=== PATIENT | female | born 1970 | race Caucasian/White ===

== ENCOUNTER → 2017-06-18 09:05 | Outpatient (CLI) | payer BC | END | disposition home or self-care (01) | LOC: D.CT 09:05 | DX: R10.9 Unspecified abdominal pain (principal) ==

== ENCOUNTER 2017-12-26 09:23 | Inpatient (IN) | payer BC ==
[~2017-12-26] VITALS: Ht 160 cm; Wt 72.3 kg
--- NOTE | ~2017-12-26 | MORECARE ---
CASE MANAGEMENT DISCHARGE SUMMARY PATIENT: DAI ALLAN UNIT: [id number] ADM DATE: 12/26/17 AGE: 47 : 66 SEX: F ROOM/BED: D.2228 AUTHOR: TINDOC PHYSICIAN: REFERRING PHYSICIAN: KORY JONES MD DATE OF SERVICE: 12/30/17 Discharge Plan Patient Name: DAI ALLAN Facility: [facility]:[place] : 1970 Planned Disposition: Home Anticipated Discharge Date: 12/29/17 Discharge Date: Expected LOS: 3 Initial Reviewer: [email or web address] Initial Review Date: 12/28/2017 Generated: 12/30/17 1:18 pm Comments DCP- Discharge Planning Updated by [email or web address]: Shara Peterson on 12/30/17 11:[address] Patient Name: DAI ALLAN Encounter No: [id number] : 1970 Primary Insurance: BLUE [employer] OUT OF STATE Anticipated DC Date: 12-29-2017 Planned Disposition: Home External Planned Provider: : DCP follow-up note: Patient and family in agreement with discharge plan. No changes to plan. Case management will follow and assist as needed. Shara Peterson DCP- Discharge Planning Updated by [email or web address]: Shara Peterson on 12/28/17 1:[address] Patient Name: DAI ALLAN Admission Status: ER Accout number: [id number] Admission Date: 12-26-2017 : 1970 Admission Diagnosis:CHOLECYSTITIS, UNSPECIFIED Attending: KORY JONES Current LOS: 2 Anticipated DC Date: 12-29-2017 Planned Disposition: Home Primary Insurance: BLUE [employer] OUT OF STATE Discharge Planning Comments: CM met with patient to discuss discharge planning, she is alone in the room. States she lives with her 25 year old daughter and . States she is independent with all ADL's and IADL's. Stats she does not have any DME or need any. Declines need for HHS. States she has a daughter that is a nurse and a daughter that's a CPT. States her will drive her home on discharge. No needs identified at this time. CM will continue to follow and assist with discharge planning/needs. Exceptional Children'S Teacher: Shara Peterson DCPIA - Discharge Planning Initial Assessment Updated by [id number]: Shara Nicholas on 12/28/17 2:03 pm * Is the patient Alert and Oriented? Yes * How many steps to enter\exit or inside your home? 2/0 * PCP Dr. Sheldon * Pharmacy [facility] on [address] * Preadmission Environment Home with Family * ADLs Independent * Equipment None * List name and contact numbers for known caregivers / representatives who currently or will assist patient after discharge: Dustin Cooper - [phone] Kusum Sprague - mother - [phone] * Verbal permission to speak to the caregivers and representatives has been obtained from the patient. Yes * Community resources currently utilized None * Additional services required to return to the preadmission environment? No * Can the patient safely return to the preadmission environment? Yes * Has this patient been hospitalized within the prior 30 days at any hospital? No Last DP export: 12/28/17 1:09 Patient Name: DAI ALLAN Page 78436 at 1219 All edits/amendments must be made on the electronic document DICTATION DATE: 12/30/171217 TIEDOWN OPERATOR: ROBE 12/30/171217 RPT#: [id number] [place] DATE: STATUS: ADM IN [facility] [address] [place] [address] END OF REPORT
--- NOTE | ~2017-12-26 | OP ---
PATIENT NAME: DAI ALLAN MEDICAL RECORD: [id number] :[birth year] LOCATION:D.MS [address]28 ADMISSION DATE:12/26/17 SURGEON: VALENTINE TOBIAS MD DATE OF OPERATION: 12/27/2017 PREOPERATIVE DIAGNOSIS: Acute cholecystitis. POSTOPERATIVE DIAGNOSES: Acute cholecystitis with hepatomegaly and retained common bile duct stones. PROCEDURES: 1. Laparoscopic cholecystectomy. 2. Intraoperative cholangiography without immediate surgeon interpretation. 3. A 14-gauge core needle liver biopsy. SURGEON: Valentine Tobias MD TERMITE CONTROL REPRESENTATIVE: None. BLOOD LOSS: Minimal. ANESTHESIA: General. DRAINS: x1 (10-Lithuanian fully fluted drainage system). The risks, possible complications, and alternatives to the procedures were explained to the patient. She elects to proceed. OPERATIVE COURSE: The patient was conveyed to the operating room electively on 12/27/2017. General anesthesia was induced by the anesthesia staff. The abdomen was sterilely prepped and draped. A small skin miguel was accomplished in the left upper quadrant. A Veress needle was inserted through the skin miguel into the peritoneal cavity. CO2 insufflation was begun. Once a sufficient pneumoperitoneum had been achieved, a 5-mm trocar was inserted through an incision in the right upper quadrant. Under direct internal vision utilizing television camera, a 12-mm trocar was inserted through an incision at the umbilicus, where there was a small umbilical hernia. Another 5-mm trocar was inserted in the epigastrium. Another 5-mm trocar was inserted in the left upper quadrant. During insertion of the Veress needle and all trocars, there appeared to have been no injury to the bowels, any intraperitoneal or retroperitoneal structures. The indication for liver biopsy was hepatomegaly. Under laparoscopic guidance, I percutaneously accessed the right upper quadrant with a core needle liver biopsy device. Cores were obtained over the convexity of the liver. The biopsy sites were made hemostatic with electrocautery. I then advanced a cholangiogram trocar. I punctured the fundus of the gallbladder. I injected dye. Real time cholangiographic images were obtained. Retained common bile duct stones were noted. I aspirated bile and removed the cholangiogram trocar. The gallbladder was grasped and retracted cephalad. The infundibulum was grasped and retracted laterally. Blunt dissection was begun in the triangle of OPERATIVE REPORT [id number] ALLAN,DAI Calot. One cystic artery and one cystic duct were identified. The cystic artery was clipped multiply and divided between clips. The cystic duct was short. I could not clip it with the small clip finish inspector. I changed out the left upper quadrant trocar from a 5-mm trocar to a 12-mm trocar. I advanced a large clipping device and here again the cystic duct was too wide to clip. I then advanced an Endo-UMER stapling device. I stapled across the cystic duct with an Endo-UMER device with a blue load. The gallbladder was then dissected off of the liver. It was placed within a bag retrieval device and was withdrawn through the umbilical fascia defect. The muscle at the 12-mm trocar site in the left upper quadrant was closed with the Alcides-Debra suture closure device and a #0 Vicryl suture. A 10-Lithuanian round fully fluted drain was advanced down through the lateral most 5-mm trocar. It was sutured to the skin with a 3-0 Prolene. All the trocars were removed and the abdomen was desufflated. The umbilical hernia defect was closed with interrupted #0 Vicryl sutures. The skin at the umbilicus was closed with interrupted 4-0 Vicryl Rapide sutures. The trocar sites were closed with interrupted intracuticular 3-0 Vicryls. Benzoin and Steri-Strips were applied. The patient was then extubated and conveyed to the postanesthesia care unit, where she was in stable condition. My plan is to consult Dr. Santana regarding the retained common bile duct stones. TRANSINT:[id number] Voice Confirmation ID: [id number] DOCUMENT ID: [id number] VALENTINE TOBIAS MD at 1653 CC: YAKELIN DUVAL MD, KORY JONES MD and GILMAR SANTANA DO [id number] DICTATION DATE: 12/27/17 1444 WALL COVERING INSTALLER: 12/27/17 1754 ADM IN [place] [id number] [place] [id number]
--- NOTE | ~2017-12-26 | MORECARE ---
CASE MANAGEMENT DISCHARGE SUMMARY PATIENT: DAI ALLAN UNIT: [id number] ADM DATE: 12/26/17 AGE: 47 : 66 SEX: F ROOM/BED: D.2228 AUTHOR: TIN,DOC PHYSICIAN: REFERRING PHYSICIAN: KORY JONES MD DATE OF SERVICE: 12/28/17 Discharge Plan Patient Name: DAI ALLAN Facility: [facility]:[place] : 1970 Planned Disposition: Home Anticipated Discharge Date: 12/29/17 Discharge Date: Expected LOS: 3 Initial Reviewer: [email or web address] Initial Review Date: 12/28/2017 Generated: 12/28/17 3:09 pm Comments DCP- Discharge Planning Updated by [email or web address]: Shara Peterson on 12/28/17 1:[address] Patient Name: DAI ALLAN Admission Status: ER Accout number: [id number] Admission Date: 12-26-2017 : 1970 Admission Diagnosis:CHOLECYSTITIS, UNSPECIFIED Attending: KORY JONES Current LOS: 2 Anticipated DC Date: 12-29-2017 Planned Disposition: Home Primary Insurance: [employer] OUT OF STATE Discharge Planning Comments: CM met with patient to discuss discharge planning, she is alone in the room. States she lives with her 25 year old daughter and . States she is independent with all ADL's and IADL's. Stats she does not have any DME or need any. Declines need for HHS. States she has a daughter that is a nurse and a daughter that's a CPT. States her will drive her home on discharge. No needs identified at this time. CM will continue to follow and assist with discharge planning/needs. Sales Technician Home Theater: Shara Peterson DCPIA - Discharge Planning Initial Assessment Updated by [id number]: Shara Peterson on 12/28/17 2:03 pm * Is the patient Alert and Oriented? Yes * How many steps to enter\exit or inside your home? 2/0 * PCP Dr. Sheldon * Pharmacy [facility] on [address] * Preadmission Environment Home with Family * ADLs Independent * Equipment None * List name and contact numbers for known caregivers / representatives who currently or will assist patient after discharge: Dustin - - [phone] Kusum Cooper mother - [phone] * Verbal permission to speak to the caregivers and representatives has been obtained from the patient. Yes * Community resources currently utilized None * Additional services required to return to the preadmission environment? No * Can the patient safely return to the preadmission environment? Yes * Has this patient been hospitalized within the prior 30 days at any hospital? No Patient Name: DAI ALLAN Page 28501 at 1409 All edits/amendments must be made on the electronic document DICTATION DATE: 12/28/171407 DRAFTING TECHNICIAN: ROBE 12/28/171407 RPT#: [id number] [place] DATE: STATUS: ADM IN [facility] [address] [place] [address] END OF REPORT
--- NOTE | ~2017-12-26 | MORECARE ---
CASE MANAGEMENT DISCHARGE SUMMARY PATIENT: DAI ALLAN UNIT: [id number] ADM DATE: 12/26/17 AGE: 47 : 66 SEX: F ROOM/BED: D.2228 AUTHOR: TIN,DOC PHYSICIAN: REFERRING PHYSICIAN: KORY JONES MD DATE OF SERVICE: 01/01/18 Discharge Plan Patient Name: DAI ALLAN Facility: [facility]:[place] : 1970 Planned Disposition: Home Anticipated Discharge Date: 12/29/17 Discharge Date: 12/30/2017 Expected LOS: 3 Initial Reviewer: [email or web address] Initial Review Date: 12/28/2017 Generated: 01/01/18 5:10 pm Comments DCP- Discharge Planning Updated by [email or web address]: Shara Peterson on 12/30/17 11:[address] Patient Name: DAI ALLAN Encounter No: [id number] : 1970 Primary Insurance: BLUE [employer] OUT OF STATE Anticipated DC Date: 12-29-2017 Planned Disposition: Home External Planned Provider: : DCP follow-up note: Patient and family in agreement with discharge plan. No changes to plan. Case management will follow and assist as needed. Shara Peterson DCP- Discharge Planning Updated by [email or web address]: Shara Peterson on 12/28/17 1:[address] Patient Name: DAI ALLAN Admission Status: ER Accout number: [id number] Admission Date: 12-26-2017 : 1970 Admission Diagnosis:CHOLECYSTITIS, UNSPECIFIED Attending: KORY JONES Current LOS: 2 Anticipated DC Date: 12-29-2017 Planned Disposition: Home Primary Insurance: [employer]UE [employer] OUT OF STATE Discharge Planning Comments: CM met with patient to discuss discharge planning, she is alone in the room. States she lives with her 25 year old daughter and . States she is independent with all ADL's and IADL's. Stats she does not have any DME or need any. Declines need for HHS. States she has a daughter that is a nurse and a daughter that's a CPT. States her will drive her home on discharge. No needs identified at this time. CM will continue to follow and assist with discharge planning/needs. Binding Cutter: Shara Orrell DCPIA - Discharge Planning Initial Assessment Updated by [id number]: Shara Zaragozapoonam on 12/28/17 2:03 pm * Is the patient Alert and Oriented? Yes * How many steps to enter\exit or inside your home? 2/0 * PCP Dr. Shelodn * Pharmacy [facility] on [address] * Preadmission Environment Home with Family * ADLs Independent * Equipment None * List name and contact numbers for known caregivers / representatives who currently or will assist patient after discharge: Dustin fisher - [phone] Kusum Cooper mother - [phone] * Verbal permission to speak to the caregivers and representatives has been obtained from the patient. Yes * Community resources currently utilized None * Additional services required to return to the preadmission environment? No * Can the patient safely return to the preadmission environment? Yes * Has this patient been hospitalized within the prior 30 days at any hospital? No Last DP export: 12/30/17 11:19 Patient Name: DAI ALLAN Page 18732 at 1610 All edits/amendments must be made on the electronic document DICTATION DATE: 01/01/181608 MARKETING RESEARCH ANALYST: ROBE 01/01/181608 RPT#: [id number] DC DATE:12/30/17 STATUS: DIS IN [facility] [address] [place] [address] END OF REPORT
[2017-12-26] MEDS ORDERED: OMEPRAZOLE40 MG PO (09:30)
[2017-12-26] MEDS ORDERED: LEVOFLOXACIN500 MG PO (09:30)
[2017-12-26] MEDS ORDERED: BENTYL 20 MG TA20 MG (09:30)
[2017-12-26] MEDS ORDERED: ACETAMINOPHEN325 MG PO (09:31)
[2017-12-26] MEDS ORDERED: BENADRYL25 MG PO (09:31)
[2017-12-26] MEDS ORDERED: PHENERGAN DM SYR5 ML PO (09:31)
[2017-12-26] MEDS ORDERED: ALBUTEROL2.5 MG/3 M INH (09:32)
[2017-12-26] MEDS ORDERED: LISINOPRIL5 MG PO (09:37)
[2017-12-26 09:53] LABS: APPEARANCE CLEAR (CLEAR); COLOR STRAW (YELLOW)
[2017-12-26 09:54] LABS: BILIRUBIN NEGATIVE (NEGATIVE); GLUCOSE NEGATIVE (NEGATIVE); KETONE NEGATIVE (NEGATIVE); NITRITE NEGATIVE (NEGATIVE); PROTEIN 2+ mg/dL (NEGATIVE); UROBILINOGEN NORMAL (NORMAL)
[2017-12-26 09:55] LABS: AMORPHOUS SEDIMENT <1+ /lpf (NONE SEEN); BACTERIA FEW /hpf (NONE SEEN); EPITHELIAL CELLS 0-5 /hpf (0-5); MUCUS <1+ /lpf (NONE SEEN); RED CELLS - URINE 0-5 /hpf (0-5); WHITE CELLS - URINE 0-5 /hpf (0-5); YEAST <1+ /hpf (NONE SEEN)
[2017-12-26 09:56] LABS: BASOPHILS 0.4 % (0-2); EOSINOPHILS 1.9 % (0-7); HEMATOCRIT 41.4 % (36.0-48.0); HEMOGLOBIN 14.9 g/dL (12-16); IMMATURE GRANULOCYTES 0.2 % (0-5); LYMPHOCYTES 14.1 % (15-50); MCV 80.5 fL (80.0-100.0); MEAN PLATELET VOLUME 9.6 fL (7.4-10.4); MONOCYTES 5.5 % (2-11); NEUTROPHILS 77.9 % (40-80); PLATELET COUNT 371 10x3/uL (130-400); RBC 5.14 10x6/uL (4.00-5.40); RDW 13.5 % (11.5-14.5); WBC 10.3 10x3/uL (4.8-10.8)
[2017-12-26 10:09] LABS: BILIRUBIN - TOTAL 0.99 mg/dL (0.2-1.3); CALCIUM 9.2 mg/dL (8.5-10.1); CARBON DIOXIDE 24.9 mmol/L (21.0-32.0); POTASSIUM - SERUM 3.3 mmol/L (3.5-5.1); PROTEIN - SERUM 8.5 g/dL (6.4-8.2)
[2017-12-26 11:56] VITALS: BP 143/108
[2017-12-26] MEDS ORDERED: AUBAGIO14 MG PO (14:32)
[2017-12-26] MEDS ORDERED: NEURONTIN 300300 MG PO (14:33)
[2017-12-26 19:51] VITALS: BP 141/91; Ht 160 cm; Wt 72.3 kg
[2017-12-26 20:30] VITALS: BP 135/56
[2017-12-27 00:30] VITALS: BP 112/70
[2017-12-27 04:30] VITALS: BP 121/80
[2017-12-27 08:27] VITALS: BP 151/88
[2017-12-27 11:14] VITALS: BP 144/78
[2017-12-27 15:20] VITALS: BP 151/96
[2017-12-27 20:00] VITALS: BP 138/85
[2017-12-28] VITALS: BP 133/92
[2017-12-28 04:00] VITALS: BP 127/85
[2017-12-28 06:00] LABS: BASOPHILS 0.1 % (0-2); EOSINOPHILS 0 % (0-7); HEMATOCRIT 38.1 % (36.0-48.0); HEMOGLOBIN 13.2 g/dL (12-16); IMMATURE GRANULOCYTES 0.4 % (0-5); LYMPHOCYTES 8.7 % (15-50); MCH 28.1 pg (26.0-34.0); MCHC 34.6 g/dL (31.0-37.0); MCV 81.2 fL (80.0-100.0); MEAN PLATELET VOLUME 10.1 fL (7.4-10.4); MONOCYTES 5.8 % (2-11); PLATELET COUNT 367 10x3/uL (130-400); RBC 4.69 10x6/uL (4.00-5.40); RDW 13.8 % (11.5-14.5)
[2017-12-28 06:21] LABS: WBC 16.2 10x3/uL (4.8-10.8)
[2017-12-28 06:40] LABS: ALBUMIN 3.5 g/dL (3.4-5.0); ANION GAP 13.9 mmol/L (8-16); BILIRUBIN - TOTAL 0.36 mg/dL (0.2-1.3); CALCIUM 9.1 mg/dL (8.5-10.1); CARBON DIOXIDE 25.6 mmol/L (21.0-32.0); CREATININE - SERUM 0.9 mg/dL (0.6-1.3); MAGNESIUM - SERUM 1.8 mg/dL (1.8-2.4); PHOSPHOROUS 3.7 mg/dL (2.5-4.9); POTASSIUM - SERUM 3.5 mmol/L (3.5-5.1); PROTEIN - SERUM 7.4 g/dL (6.4-8.2)
[2017-12-28 07:45] VITALS: BP 133/82
[2017-12-28 17:05] VITALS: BP 146/97
[2017-12-28 18:41] VITALS: BP 147/96
[2017-12-28 20:00] VITALS: BP 158/83
[2017-12-29] VITALS: BP 148/88
[2017-12-29 04:46] LABS: BASOPHILS 0.7 % (0-2); EOSINOPHILS 1.1 % (0-7); HEMOGLOBIN 12.4 g/dL (12-16); IMMATURE GRANULOCYTES 0.2 % (0-5); LYMPHOCYTES 23.3 % (15-50); MCH 28.1 pg (26.0-34.0); MCHC 34.4 g/dL (31.0-37.0); MCV 81.4 fL (80.0-100.0); MEAN PLATELET VOLUME 9.8 fL (7.4-10.4); MONOCYTES 7.5 % (2-11); NEUTROPHILS 67.2 % (40-80); PLATELET COUNT 312 10x3/uL (130-400); RBC 4.42 10x6/uL (4.00-5.40); RDW 13.9 % (11.5-14.5)
[2017-12-29 05:00] LABS: WBC 8.8 10x3/uL (4.8-10.8)
[2017-12-29 05:29] LABS: ALBUMIN 3.2 g/dL (3.4-5.0); ANION GAP 10.6 mmol/L (8-16); BILIRUBIN - TOTAL 1.13 mg/dL (0.2-1.3); CALCIUM 8.5 mg/dL (8.5-10.1); CARBON DIOXIDE 29.9 mmol/L (21.0-32.0); POTASSIUM - SERUM 3.5 mmol/L (3.5-5.1); PROTEIN - SERUM 6.9 g/dL (6.4-8.2)
[2017-12-29 07:21] VITALS: BP 151/82
[2017-12-29 08:32] VITALS: BP 135/88
[2017-12-29 12:10] VITALS: BP 145/86
[2017-12-29 17:13] VITALS: BP 157/91
[2017-12-29 22:17] VITALS: BP 126/83
[2017-12-30 01:08] VITALS: BP 115/80
[2017-12-30 05:08] VITALS: BP 125/75
[2017-12-30 06:31] LABS: BASOPHILS 0.5 % (0-2); EOSINOPHILS 5.9 % (0-7); HEMATOCRIT 36.2 % (36.0-48.0); HEMOGLOBIN 12.3 g/dL (12-16); IMMATURE GRANULOCYTES 0.3 % (0-5); LYMPHOCYTES 29.4 % (15-50); MCV 82.3 fL (80.0-100.0); MEAN PLATELET VOLUME 10.2 fL (7.4-10.4); MONOCYTES 6.5 % (2-11); NEUTROPHILS 57.4 % (40-80); PLATELET COUNT 308 10x3/uL (130-400); RDW 14.2 % (11.5-14.5); WBC 10.5 10x3/uL (4.8-10.8)
[2017-12-30 06:45] LABS: ALBUMIN 3.1 g/dL (3.4-5.0); ANION GAP 13.2 mmol/L (8-16); BILIRUBIN - TOTAL 0.34 mg/dL (0.2-1.3); CALCIUM 8.4 mg/dL (8.5-10.1); CARBON DIOXIDE 26.6 mmol/L (21.0-32.0); CREATININE - SERUM 0.9 mg/dL (0.6-1.3); POTASSIUM - SERUM 3.8 mmol/L (3.5-5.1); PROTEIN - SERUM 6.9 g/dL (6.4-8.2)
[2017-12-30 08:36] VITALS: BP 129/81
[2017-12-30] MEDS ORDERED: ZOFRAN4 MG PO (11:47)
[2017-12-30] MEDS ORDERED: HYDROCODON-ACE1 EAC7 PO (11:47)
[2017-12-30 12:32] VITALS: BP 140/98
== END 2017-12-30 17:46 | disposition home or self-care (01) | DRG 418 ==
LOC: D.ER 09:23 → D.MS 14:06 → OBSVTIME 14:06 → D.MS 15:47
PROVIDERS: Emergency Medicine; Internal Medicine Nephrology; Surgery
PROC: 0FT44ZZ Resection of Gallbladder, Percutaneous Endoscopic Approach (ICD-10-PCS; principal; 2017-12-27 11:30)
PROC: 0FB04ZX Excision of Liver, Percutaneous Endoscopic Approach, Diagnostic (ICD-10-PCS; 2017-12-27 11:30)
PROC: 0FC98ZZ Extirpation of Matter from Common Bile Duct, Via Natural or Artificial Opening Endoscopic (ICD-10-PCS; 2017-12-28)
DX: K80.00 Calculus of gallbladder with acute cholecystitis without obstruction (principal); K91.86 Retained cholelithiasis following cholecystectomy; R16.0 Hepatomegaly, not elsewhere classified; E86.0 Dehydration; G62.9 Polyneuropathy, unspecified; F41.9 Anxiety disorder, unspecified

== ENCOUNTER → 2018-11-19 09:56 | Outpatient (CLI) | payer BC ==
[2017-12-26 19:51] VITALS: BMI 28.2
[~2018-11-19 09:56] MED LIST: ACETAMINOPHEN325 MG PO; ALBUTEROL2.5 MG/3 M INH; AUBAGIO14 MG PO; BENADRYL25 MG PO; BENTYL 20 MG TA20 MG; HYDROCODON-ACE1 EAC7 PO; LEVOFLOXACIN500 MG PO; LISINOPRIL5 MG PO; NEURONTIN 300300 MG PO; OMEPRAZOLE40 MG PO; PHENERGAN DM SYR5 ML PO; ZOFRAN4 MG PO
--- NOTE | 2018-11-22 11:10 | ST ---
PATIENT:DAI ALLAN MEDICAL RECORD: [id number] SEX: F LOCATION:[facility] ORDER #: ADMISSION DATE: 11/19/18 AGE OF PATIENT: 48 REFERRING PHYSICIAN: INTERPRETING PHYSICIAN: GUERLINE BELLAMY MD DATE OF SERVICE: 11/19/2018 PROCEDURE: Nuclear stress test. INDICATIONS: Angina, hypertension, abnormal ECG. She was exercised on standard Augustine protocol for 8 minutes achieving 85% of max target heart rate response with 32 mCi of sestamibi injected at peak stress, 11 mCi used previously for rest images. FINDINGS: Gated SPECT reveals preserved ejection fraction at 74% with good wall motion and thickening and brightening throughout all segments. SPECT imaging: Cardiolite was used as myocardial perfusion agent. There is homogeneous uptake throughout all segments at rest and stress with no evidence of inducible ischemia or previous infarction. OVERALL IMPRESSION: 1. This is a normal nuclear stress test with no evidence of inducible ischemia or previous infarction. 2. Gated SPECT reveals a preserved ejection fraction at 74%. In this patient with ongoing symptomatology, the current scan does not suggest the presence of hemodynamically significant coronary artery disease. Evaluate noncardiac etiology of chest pain. TRANSINT:[id number] Voice Confirmation ID: [id number] DOCUMENT ID: [id number] GUERLINE BELLAMY MD at 1110 CC: YAKELIN DUVAL MD [id number] DICTATION DATE: 11/19/18 1304 PRODUCTION CREW SUPERVISOR: 11/20/18 0733 [facility] CLI 11/19/18 [facility] [address] [place] [address]
== END | disposition home or self-care (01) ==
LOC: D.HCCARDIO 09:56
PROVIDERS: ATTEND Internal Medicine Interventional Cardiology
DX: R07.9 Chest pain, unspecified (principal)

== ENCOUNTER 2019-01-19 15:52 | Emergency (ER) | payer MEDICAID ==
[~2019-01-19] VITALS: Ht 160 cm; Wt 81.4 kg
[2019-01-19 15:58] VITALS: Ht 160 cm; Wt 81.4 kg
[2019-01-19 16:22] LABS: BASOPHILS 0.2 % (0-2); EOSINOPHILS 1.7 % (0-7); HEMATOCRIT 38.2 % (36.0-48.0); HEMOGLOBIN 13.3 g/dL (12-16); IMMATURE GRANULOCYTES 0.4 % (0-5); LYMPHOCYTES 11.9 % (15-50); MCH 28.4 pg (26.0-34.0); MCHC 34.8 g/dL (31.0-37.0); MCV 81.6 fL (80.0-100.0); MEAN PLATELET VOLUME 9.3 fL (7.4-10.4); MONOCYTES 4.5 % (2-11); NEUTROPHILS 81.3 % (40-80); PLATELET COUNT 346 10x3/uL (130-400); RBC 4.68 10x6/uL (4.00-5.40); RDW 13.4 % (11.5-14.5); WBC 13.9 10x3/uL (4.8-10.8)
[2019-01-19 16:36] LABS: APTT 33.2 SECONDS (22.8-39.4); PROTIME 12.7 SECONDS (11.6-15.0)
[2019-01-19 16:45] LABS: CALC OSMOLALITY 277 mosm/kg (275-300); CALCIUM 9.4 mg/dL (8.5-10.1); CHLORIDE - SERUM 100 mmol/L (98-107); CREATININE - SERUM 0.9 mg/dL (0.6-1.3); POTASSIUM - SERUM 3.4 mmol/L (3.5-5.1); SODIUM 138 mmol/L (136-145); UREA NITROGEN 10 mg/dL (7-18); eGFR NON AFRICAN AMERICAN 70 mL/min (90-120)
[2019-01-19 16:52] LABS: GLUCOSE 146 mg/dL (74-106)
[2019-01-19 17:03] LABS: ALBUMIN 3.9 g/dL (3.4-5.0); ALKALINE PHOSPHATASE 98 U/L (46-116); ALT (SGPT) 25 U/L (10-68); BILIRUBIN - TOTAL 0.27 mg/dL (0.2-1.3); CREATINE KINASE 99 UL (21-215); MAGNESIUM - SERUM 1.7 mg/dL (1.8-2.4); PROTEIN - SERUM 8.3 g/dL (6.4-8.2); THYROID STIMULATING HORMONE 4.09 uIU/mL (0.36-3.74)
[2019-01-19 17:05] LABS: TROPONIN-I < 0.017 ng/mL (0.000-0.060)
[2019-01-19 17:26] LABS: CKMB 0.9 U/L (0.0-3.6)
[2019-01-19] MEDS ORDERED: IPRATROPIUM BRO15 M1 NASAL (18:01)
[2019-01-19] MEDS ORDERED: MECLIZINE HCL25 MG PO (18:02)
[2019-01-19] MEDS ORDERED: ZOFRAN ODT4 MG/UDTAB PO (18:03)
[2019-01-19 18:46] VITALS: BP 148/86
== END 2019-01-19 18:47 | disposition home or self-care (01) ==
LOC: D.ER 15:52
PROVIDERS: Family Medicine
DX: R42 Dizziness and giddiness (principal); R94.6 Abnormal results of thyroid function studies; R46.89 Other symptoms and signs involving appearance and behavior; H74.8X9 Other specified disorders of middle ear and mastoid, unspecified ear

== ENCOUNTER 2019-10-03 19:57 | Inpatient (IN) | payer MEDICAID ==
[~2019-10-03] VITALS: Ht 160 cm; Wt 78.5 kg
[~2019-10-03 19:57] MED LIST changes: +IPRATROPIUM BRO15 M1 NASAL; +MECLIZINE HCL25 MG PO; +ZOFRAN ODT4 MG/UDTAB PO
[2019-10-03] MEDS ORDERED: PHENERGAN25 M1 PO (20:26)
[2019-10-03] MEDS ORDERED: ULTRAM50 MG PO (20:27)
--- NOTE | 2019-10-03 20:40 | NUR ---
BLOOD AND URINE SENT TO LAB.
[2019-10-03 20:51] LABS: BASOPHILS 0.2 % (0-2); EOSINOPHILS 1.1 % (0-7); HEMATOCRIT 40.1 % (36.0-48.0); HEMOGLOBIN 13.6 g/dL (12-16); IMMATURE GRANULOCYTES 0.3 % (0-5); LYMPHOCYTES 14.8 % (15-50); MCH 27.4 pg (26.0-34.0); MCHC 33.9 g/dL (31.0-37.0); MCV 80.8 fL (80.0-100.0); MEAN PLATELET VOLUME 9.2 fL (7.4-10.4); MONOCYTES 6.8 % (2-11); NEUTROPHILS 76.8 % (40-80); PLATELET COUNT 405 10x3/uL (130-400); RBC 4.96 10x6/uL (4.00-5.40); RDW 13.2 % (11.5-14.5); WBC 18.5 10x3/uL (4.8-10.8)
[2019-10-03 20:56] LABS: BILIRUBIN NEGATIVE (NEGATIVE); KETONE NEGATIVE (NEGATIVE); NITRITE NEGATIVE (NEGATIVE); UROBILINOGEN NORMAL (NORMAL)
[2019-10-03 21:11] LABS: BACTERIA FEW /hpf (NEGATIVE); EPITHELIAL CELLS 0-5 /hpf (0-5); RED CELLS - URINE 0-5 /hpf (0-5); WHITE CELLS - URINE OCC /hpf (NEGATIVE)
[2019-10-03 21:59] LABS: CALC OSMOLALITY 267 mosm/kg (275-300); CALCIUM 9.1 mg/dL (8.5-10.1); CARBON DIOXIDE 28.6 mmol/L (21.0-32.0); CHLORIDE - SERUM 98 mmol/L (98-107); GLUCOSE 109 mg/dL (74-106); POTASSIUM - SERUM 3.4 mmol/L (3.5-5.1); SODIUM 134 mmol/L (136-145); UREA NITROGEN 9 mg/dL (7-18); eGFR NON AFRICAN AMERICAN 62 mL/min (90-120)
[2019-10-03 22:08] LABS: ALBUMIN 3.8 g/dL (3.4-5.0); ALKALINE PHOSPHATASE 94 U/L (30-120); ALT (SGPT) 21 U/L (10-68); AMYLASE - SERUM 26 U/L (25-115); BILIRUBIN - TOTAL 0.55 mg/dL (0.2-1.3); LIPASE 60 U/L (73-393); PROTEIN - SERUM 8.4 g/dL (6.4-8.2)
[2019-10-03 22:09] LABS: TROPONIN-I < 0.017 ng/mL (0.000-0.060)
--- NOTE | 2019-10-04 00:02 | NUR ---
PT AMBULATED TO THE RESTROOM WITH ASSISTANCE. PT DENIES OTHER COMPLAINTS AT THIS TIME.
--- NOTE | 2019-10-04 00:48 | NUR ---
INFUSION OF MERREM COMPLETE AT THIS TIME
[2019-10-04 01:20] VITALS: BP 116/72
[2019-10-04 04:00] VITALS: BP 138/76
--- NOTE | 2019-10-04 04:57 | NUR ---
PT AMBULATED TO RESTROOM WITH ASSISTANCE.
--- NOTE | 2019-10-04 05:07 | NUR ---
INFUSION OF NS COMPLETE AT THIS TIME.
--- NOTE | 2019-10-04 06:42 | NUR ---
PT AMBULATED TO THE REST ROOM INDEPENDENTLY.
[2019-10-04 06:53] VITALS: BP 126/75
[2019-10-04 06:57] LABS: ALBUMIN 3.1 g/dL (3.4-5.0); ANION GAP 9.7 mmol/L (8-16); BILIRUBIN - TOTAL 0.43 mg/dL (0.2-1.3); CALCIUM 8.4 mg/dL (8.5-10.1); CREATININE - SERUM 0.9 mg/dL (0.6-1.3); POTASSIUM - SERUM 3.7 mmol/L (3.5-5.1); PROTEIN - SERUM 7.1 g/dL (6.4-8.2)
--- NOTE | 2019-10-04 07:01 | NUR ---
REPORT GIVEN TO BREE CHRISTIE
[2019-10-04 07:04] LABS: BASOPHILS 0.2 % (0-2); EOSINOPHILS 0.6 % (0-7); HEMATOCRIT 36.5 % (36.0-48.0); HEMOGLOBIN 12.4 g/dL (12-16); IMMATURE GRANULOCYTES 0.3 % (0-5); LYMPHOCYTES 8.8 % (15-50); MCH 27.4 pg (26.0-34.0); MCV 80.8 fL (80.0-100.0); MEAN PLATELET VOLUME 9.3 fL (7.4-10.4); MONOCYTES 7.6 % (2-11); NEUTROPHILS 82.5 % (40-80); PLATELET COUNT 345 10x3/uL (130-400); RBC 4.52 10x6/uL (4.00-5.40); RDW 13.1 % (11.5-14.5); WBC 15.6 10x3/uL (4.8-10.8)
--- NOTE | 2019-10-04 12:15 | NUR ---
TO ROOM 2224 FROM ER VIA WHEELCHAIR. ASSESSMENT PER FLOW SHEET. ORIENTATION TO ROOM.CALL LIGHT IN REACH
[2019-10-04 14:02] VITALS: BP 154/89; BMI 30.5
[2019-10-04 15:00] VITALS: BP 141/86
[2019-10-04 20:00] VITALS: BP 148/86
[2019-10-05] VITALS: BP 112/68
--- NOTE | 2019-10-05 00:11 | NUR ---
I have reviewed this patient and I concur with the Shift Assessment completed by the Licensed Practical Nurse today this shift.
[2019-10-05 04:00] VITALS: BP 122/75
--- NOTE | 2019-10-05 07:10 | NUR ---
REC'D IN BED AWAKE AND ALERT. RESP EVEN AND UNLABORED WITH NO DISTRESS NOTED. CAN EXPRESS NEEDS AND WANTS. NO C/O NOTED OR VOICED. ASSESSMENT COMPLETED. C/L IN REACH AT BEDSIDE.
[2019-10-05 09:56] LABS: BASOPHILS 0.2 % (0-2); EOSINOPHILS 1.4 % (0-7); HEMATOCRIT 35.3 % (36.0-48.0); HEMOGLOBIN 12.1 g/dL (12-16); IMMATURE GRANULOCYTES 0.3 % (0-5); LYMPHOCYTES 12.1 % (15-50); MCH 27.6 pg (26.0-34.0); MCHC 34.3 g/dL (31.0-37.0); MCV 80.4 fL (80.0-100.0); MEAN PLATELET VOLUME 9.1 fL (7.4-10.4); MONOCYTES 6.8 % (2-11); NEUTROPHILS 79.2 % (40-80); PLATELET COUNT 353 10x3/uL (130-400); RBC 4.39 10x6/uL (4.00-5.40); WBC 13.9 10x3/uL (4.8-10.8)
[2019-10-05 09:58] VITALS: BP 127/83
[2019-10-05 10:00] LABS: CALC OSMOLALITY 275 mosm/kg (275-300); CALCIUM 8.1 mg/dL (8.5-10.1); CARBON DIOXIDE 24.5 mmol/L (21.0-32.0); CHLORIDE - SERUM 105 mmol/L (98-107); CREATININE - SERUM 0.7 mg/dL (0.6-1.3); GLUCOSE 97 mg/dL (74-106); POTASSIUM - SERUM 3.4 mmol/L (3.5-5.1); SODIUM 139 mmol/L (136-145); UREA NITROGEN 7 mg/dL (7-18); eGFR NON AFRICAN AMERICAN > 90 mL/min (90-120)
--- NOTE | 2019-10-05 10:04 | NUR ---
WAS MEDICATED WITH ZOFRAN AT THIS TIME FOR C/O NAUSEA. C/L IN REACH AT BEDSIDE.
--- NOTE | 2019-10-05 11:10 | NUR ---
WAS MEDICATED AT THIS TIME FOR C/O PAIN WITH DILAUDID PER ORDERS. C/L IN REACH BEDSIDE.
[2019-10-05 13:33] VITALS: BP 153/78
[2019-10-05 13:49] VITALS: Ht 160 cm; Wt 78.5 kg
--- NOTE | 2019-10-05 15:41 | NUR ---
WAS MEDICATED WITH DILUADID AT THIS TIME FOR C/O PAIN. C/L IN REACH AT BEDSIDE.
--- NOTE | 2019-10-05 15:46 | NUR ---
WAS MEDICATED WITH ZOFRAN AT THIS TIME FOR C/O NAUSEA. C/L IN REACH AT BEDSIDE.
[2019-10-05 18:25] VITALS: BP 138/90
--- NOTE | 2019-10-05 18:45 | NUR ---
I have reviewed this patient and I concur with the Shift Assessment completed by the Licensed Practical Nurse today this shift.
[2019-10-05 20:00] VITALS: BP 140/80
[2019-10-06] VITALS (7 sets, daily range): BP systolic 113–146; BP diastolic 54–87
[2019-10-06 04:27] LABS: BASOPHILS 0.2 % (0-2); HEMOGLOBIN 12.4 g/dL (12-16); IMMATURE GRANULOCYTES 0.3 % (0-5); LYMPHOCYTES 12.3 % (15-50); MCH 27.5 pg (26.0-34.0); MCHC 34.4 g/dL (31.0-37.0); MCV 79.8 fL (80.0-100.0); MEAN PLATELET VOLUME 9.2 fL (7.4-10.4); MONOCYTES 6.4 % (2-11); NEUTROPHILS 79.8 % (40-80); PLATELET COUNT 405 10x3/uL (130-400); RBC 4.51 10x6/uL (4.00-5.40); RDW 13.1 % (11.5-14.5); WBC 16.3 10x3/uL (4.8-10.8)
[2019-10-06 04:48] LABS: ANION GAP 9.1 mmol/L (8-16); BILIRUBIN - TOTAL 0.38 mg/dL (0.2-1.3); CALCIUM 8.5 mg/dL (8.5-10.1); CARBON DIOXIDE 27.3 mmol/L (21.0-32.0); MAGNESIUM - SERUM 1.9 mg/dL (1.8-2.4); POTASSIUM - SERUM 3.4 mmol/L (3.5-5.1); PROTEIN - SERUM 7.1 g/dL (6.4-8.2)
[2019-10-06 04:49] LABS: CREATININE - SERUM 0.9 mg/dL (0.6-1.3)
--- NOTE | 2019-10-06 06:19 | NUR ---
I have reviewed this patient and I concur with the Shift Assessment completed by the Licensed Practical Nurse today this shift.
--- NOTE | 2019-10-06 11:34 | NUR ---
IV THERAPY REMOVED FROM LEFT FOREARM WITH TIP INTACT. INFILTRATED. RIGHT AC HAS A SMALL LEAK. WILL GIVE ANOTHER IV AFTER PT SHOWER. CL IN REACH. WCTM
--- NOTE | 2019-10-06 19:30 | NUR ---
PT IN BED, AAO X 3, RESP EVEN AND UNLABORED, NO DISTRESS NOTED, CL IN REACH, SR UP X 2.
--- NOTE | 2019-10-07 00:35 | NUR ---
I have reviewed this patient and I concur with the Shift Assessment completed by the Licensed Practical Nurse today this shift.
[2019-10-07 03:49] VITALS: BP 128/68
[2019-10-07 05:32] LABS: BASOPHILS 0.2 % (0-2); EOSINOPHILS 2.6 % (0-7); HEMOGLOBIN 12.3 g/dL (12-16); IMMATURE GRANULOCYTES 0.5 % (0-5); LYMPHOCYTES 16.9 % (15-50); MCH 27.3 pg (26.0-34.0); MCHC 34.2 g/dL (31.0-37.0); MCV 79.8 fL (80.0-100.0); MEAN PLATELET VOLUME 9.1 fL (7.4-10.4); MONOCYTES 7.7 % (2-11); NEUTROPHILS 72.1 % (40-80); PLATELET COUNT 416 10x3/uL (130-400); RBC 4.51 10x6/uL (4.00-5.40); WBC 14.5 10x3/uL (4.8-10.8)
[2019-10-07 05:55] LABS: ANION GAP 11.6 mmol/L (8-16); BILIRUBIN - TOTAL 0.34 mg/dL (0.2-1.3); CALCIUM 8.4 mg/dL (8.5-10.1); CARBON DIOXIDE 28.5 mmol/L (21.0-32.0); PROTEIN - SERUM 7.1 g/dL (6.4-8.2)
[2019-10-07 06:02] LABS: POTASSIUM - SERUM 3.1 mmol/L (3.5-5.1)
--- NOTE | 2019-10-07 07:44 | NUR ---
ALERT AND ORIENTED. LUNGS CLEAR BILATERALLY. HEART SOUNDS S1 AND S2 HEARD IN ALL COWAN. BOWEL SOUNDS ACTIVE X 4. ABD DISTENDED. IV TO LFA PATENT WITHOUT REDNESS. DENIES NEEDS. BED LOW. CALL ACEVEDO AND PERSONAL ITEMS IN REACH. WILL CONTINUE TO MONITOR.
[2019-10-07 09:16] VITALS: BP 130/61
--- NOTE | 2019-10-07 12:33 | NUR ---
NUTRITION FOLLOW UP: INTERVIEW: Met with patient this am. Patient stated her appetite has been improving. She stated she had nausea, but denied vomiting. She stated that she experiences diarrhea and constipation off and on. DIET: Regluar Diet PO INTAKE: 48% avg for last 3 meals WEIGHT: 10/02-172 lbs, 10/06-173 lbs BM: x 1 on 10/06 SIG LABS: K-3.1(L), Ca-8.4(L), Albumin-3.0(L) SIG MEDS: Colace, Protonix, Zofran, KCl RECOMMENDATIONS: -Continue current diet as tolerated -Offer nutritional supplements if po intake continues < 50% avg for meals RD to continue to follow and monitor patient DHS
[2019-10-07 12:57] VITALS: BP 147/81
[2019-10-07 17:06] VITALS: BP 142/84
--- NOTE | 2019-10-07 19:00 | NUR ---
BEDSIDE REPORT RECEIVED AND CARE OF PT ASSUMED. PT UP IN RESTROOM AT THIS TIME. IV TO LEFT FA PATENT WITH NS INFUSING AT 150 ML/HR. WILL MONITOR FOR NEEDS.
--- NOTE | 2019-10-07 19:44 | NUR ---
HS MEDICATIONS GIVEN TO INCLUDE GAS X PER REQUEST FOR GAS DISCOMFORT. WILL CONTINUE TO MONITOR FOR NEEDS.
[2019-10-07 20:00] VITALS: BP 124/80
[2019-10-08 04:00] VITALS: BP 130/78
[2019-10-08 06:36] LABS: BASOPHILS 0.2 % (0-2); EOSINOPHILS 3.2 % (0-7); HEMATOCRIT 34.8 % (36.0-48.0); HEMOGLOBIN 11.9 g/dL (12-16); IMMATURE GRANULOCYTES 0.5 % (0-5); LYMPHOCYTES 15.2 % (15-50); MCH 27.2 pg (26.0-34.0); MCHC 34.2 g/dL (31.0-37.0); MCV 79.5 fL (80.0-100.0); MONOCYTES 5.5 % (2-11); NEUTROPHILS 75.4 % (40-80); PLATELET COUNT 438 10x3/uL (130-400); RBC 4.38 10x6/uL (4.00-5.40); RDW 12.9 % (11.5-14.5); WBC 13.3 10x3/uL (4.8-10.8)
[2019-10-08 07:25] LABS: ALBUMIN 3.1 g/dL (3.4-5.0); ANION GAP 10.8 mmol/L (8-16); BILIRUBIN - TOTAL 0.28 mg/dL (0.2-1.3); CALCIUM 8.4 mg/dL (8.5-10.1); CARBON DIOXIDE 28.5 mmol/L (21.0-32.0); CREATININE - SERUM 0.9 mg/dL (0.6-1.3); MAGNESIUM - SERUM 1.9 mg/dL (1.8-2.4); PROTEIN - SERUM 7.1 g/dL (6.4-8.2)
[2019-10-08 07:26] LABS: POTASSIUM - SERUM 3.3 mmol/L (3.5-5.1)
--- NOTE | 2019-10-08 07:34 | NUR ---
ALERT AND ORIENTED. LUNGS CLEAR BILATERALLY. HEART SOUNDS S1 AND S2 HEARD IN ALL COWAN. BOWEL SOUNDS ACTIVE X 4. AND DISTENDED. IV TO LFA PATENT WITHOUT REDNESS. DENIES NEEDS. BED LOW. CALL ACEVEDO AND PERSONAL ITEMS IN REACH. WILL CONTINUE TO MONITOR.
[2019-10-08 09:34] VITALS: BP 139/81
[2019-10-08 13:32] VITALS: BP 144/69
--- NOTE | 2019-10-08 17:31 | NUR ---
IV INFILTRATED TO LFA. RESITED TO RFA AFTER ONE ATTEMPT WITH 22 GAUGE.
[2019-10-08 17:45] VITALS: BP 141/81
--- NOTE | 2019-10-08 18:24 | NUR ---
RESTING IN BED. DENIES NEEDS. BED LOW. CALL ACEVEDO AND PERSONAL ITEMS IN REACH.
--- NOTE | 2019-10-08 19:00 | NUR ---
BEDSIDE REPORT RECEIVED AND CARE OF PT ASSUMED. PT AMBULATING IN ROOM AT THIS TIME. IV TO RIGHT FA PATENT WITH NS INFUSING AT 150 ML/HR. WILL MONITOR FOR NEEDS.
--- NOTE | 2019-10-08 20:20 | NUR ---
HS MEDICATIONS GIVEN. WILL CONTINUE TO MONITOR FOR NEEDS.
--- NOTE | 2019-10-08 21:04 | NUR ---
RECEIVED ORDER FROM [facility] FOR DIFLUCAN 100 MG QD X4 DAYS FOR PT C/O VAGINAL ITCHING. FIRST DOST WILL BE GIVEN TONIGHT.
--- NOTE | 2019-10-08 21:20 | NUR ---
GAVE FIRST DOSE OF DIFLUCAN. GAVE DILAUDID 1 MG AND ZOFRAN 4 MG IVP PER PT REQUEST FOR PAIN AND NAUSEA. WILL CONTINUE TO MONITOR FOR NEEDS.
[2019-10-08 21:40] VITALS: BP 152/73
[2019-10-08 23:45] VITALS: BP 146/86
--- NOTE | 2019-10-09 03:04 | NUR ---
DECREASED IVF RATE TO 75 ML/HR PER MD NOTES.
[2019-10-09 04:24] VITALS: BP 121/70
[2019-10-09 07:11] LABS: BASOPHILS 0.2 % (0-2); EOSINOPHILS 2.7 % (0-7); HEMOGLOBIN 11.6 g/dL (12-16); IMMATURE GRANULOCYTES 0.3 % (0-5); LYMPHOCYTES 18.2 % (15-50); MCH 27.2 pg (26.0-34.0); MCHC 34.1 g/dL (31.0-37.0); MCV 79.8 fL (80.0-100.0); MEAN PLATELET VOLUME 8.9 fL (7.4-10.4); MONOCYTES 6.6 % (2-11); PLATELET COUNT 431 10x3/uL (130-400); RBC 4.26 10x6/uL (4.00-5.40); WBC 12.1 10x3/uL (4.8-10.8)
[2019-10-09 08:01] LABS: ANION GAP 12.4 mmol/L (8-16); BILIRUBIN - TOTAL 0.22 mg/dL (0.2-1.3); CALCIUM 8.8 mg/dL (8.5-10.1); CARBON DIOXIDE 28.1 mmol/L (21.0-32.0); CREATININE - SERUM 0.9 mg/dL (0.6-1.3); MAGNESIUM - SERUM 1.9 mg/dL (1.8-2.4); POTASSIUM - SERUM 3.5 mmol/L (3.5-5.1)
[2019-10-09 09:17] VITALS: BP 143/81
[2019-10-09 13:21] VITALS: BP 141/86
--- NOTE | 2019-10-09 19:00 | NUR ---
BEDSIDE REPORT RECEIVED AND CARE OF PT ASSUMED. PT LYING IN HIGH HERR'S POSITION VISITING WITH SPOUSE. PROVIDED ICE AND ICE WATER PER REQUEST.
[2019-10-09 19:09] VITALS: BP 149/81
--- NOTE | 2019-10-09 19:15 | NUR ---
GAVE MYLICON CHEWABLE TABLET PER PT REQUEST FOR GAS. WILL CONTINUE TO MONITOR FOR NEEDS.
[2019-10-09 20:00] VITALS: BP 129/71
--- NOTE | 2019-10-09 21:16 | NUR ---
HS MEDICATIONS GIVEN TO INCLUDE DILAUDID AND ZOFRAN PER REQUEST FOR PAIN AND NAUSEA. IV TENDER BUT FLUSHING...STOPPED IV FLUIDS FOR NOW.
[2019-10-10] VITALS: BP 120/69
[2019-10-10 04:00] VITALS: BP 105/59
--- NOTE | 2019-10-10 07:31 | NUR ---
PT AWAKE AND ALERT IN RESTROOM, TOLD PT I HAD IV ABX TO RUN. PT STATED IV IS NO GOOD AND THAT SHE WAS TOLD SHE IS GOING HOME TODAY. PT STATED ARM SWELLS UP WHEN ANYTHING GOES THROUGH IV. PT HAS IV PAIN MEDICATION AND STATED THAT IS THE ONLY THING THAT CAN GO THROUGH MY IV. EXPLAINED TO PT THAT IF IV ABX IS NOT RUNNING THROUGH IV THEN NEITHER WOULD HER PAIN MEDICATION. PT STATED " I DON'T KNOW WHAT TO TELL YOU, THATS AL I CAN GET THROUGH MY IV IS MY DILAUDID. TOLD PT I WILL TALK TO AND SEE IF WE CANT CHANGE HER IV MEDICATIONS TO ORAL MEDICATIONS. PT STATED SHE IS BEING DISCHARGED TODAY ANYWAYS. CONTINUE WITH PLAN OF CARE
[2019-10-10 07:34] LABS: ALBUMIN 3.3 g/dL (3.4-5.0); BILIRUBIN - TOTAL 0.37 mg/dL (0.2-1.3); CALCIUM 8.8 mg/dL (8.5-10.1); CARBON DIOXIDE 32.8 mmol/L (21.0-32.0); MAGNESIUM - SERUM 1.9 mg/dL (1.8-2.4); POTASSIUM - SERUM 3.8 mmol/L (3.5-5.1); PROTEIN - SERUM 7.1 g/dL (6.4-8.2)
[2019-10-10 07:43] LABS: BASOPHILS 0.1 % (0-2); EOSINOPHILS 2.8 % (0-7); HEMATOCRIT 36.4 % (36.0-48.0); HEMOGLOBIN 12.4 g/dL (12-16); IMMATURE GRANULOCYTES 0.4 % (0-5); LYMPHOCYTES 16.2 % (15-50); MCH 27.2 pg (26.0-34.0); MCHC 34.1 g/dL (31.0-37.0); MCV 79.8 fL (80.0-100.0); MEAN PLATELET VOLUME 8.8 fL (7.4-10.4); MONOCYTES 7.1 % (2-11); NEUTROPHILS 73.4 % (40-80); PLATELET COUNT 432 10x3/uL (130-400); RBC 4.56 10x6/uL (4.00-5.40); RDW 13.1 % (11.5-14.5); WBC 12.2 10x3/uL (4.8-10.8)
--- NOTE | 2019-10-10 07:43 | NUR ---
SPOKE TO DR BURGER IN REGARDS TO PT MEDICATIONS AND PER DR TOBIAS CHANGE PT IV TO PO NORCO 5MG Q4 PRN FOR PAIN
--- NOTE | 2019-10-10 08:03 | NUR ---
SL TO RIGHT FOREARM D/C WITH CATHETER INTACT WITHOUT DIFFICULTY. SOME EDEMA NOTED. WARM PACK PLACED TO AREA.
[2019-10-10 08:56] VITALS: BP 119/55
[2019-10-10] MEDS ORDERED: COLACE100 MG PO (12:13)
[2019-10-10] MEDS ORDERED: FLORAJEN3 CAPS460 MG PO (12:13)
[2019-10-10] MEDS ORDERED: FLAGYL500 MG PO (12:14)
[2019-10-10] MEDS ORDERED: LEVAQUIN750 MG PO (12:14)
[2019-10-10] MEDS ORDERED: HYDROCODON-ACE1 EAC7 PO (12:15)
[2019-10-10] MEDS ORDERED: DIFLUCAN100 MG PO (12:16)
[2019-10-10 12:39] VITALS: BP 112/77
--- NOTE | 2019-10-10 13:41 | MORECARE ---
CASE MANAGEMENT DISCHARGE SUMMARY PATIENT: DAI ALLAN UNIT: [id number] ADM DATE: 10/03/19 AGE: 48 : 66 SEX: F ROOM/BED: D.2224 AUTHOR: SERGEY CASTLE PHYSICIAN: REFERRING PHYSICIAN: ESTIVEN HENNESSY MD DATE OF SERVICE: 10/10/19 Discharge Plan Patient Name: DAI ALLAN Facility: [facility]:[place] : 1970 Planned Disposition: Anticipated Discharge Date: Discharge Date: Expected LOS: Initial Reviewer: [email or web address] Initial Review Date: 10/04/2019 Generated: 10/10/19 2:40 pm Comments DCP- Discharge Planning Updated by [email or web address]: Beryl Merrill on 10/10/19 12:[address] Patient Name: DAI ALLAN Admission Status: ER Accout number: [id number] Admission Date: 10-03-2019 : 1970 Admission Diagnosis:UNSPECIFIED ABDOMINAL PAIN Attending: ESTIVEN HENNESSY Current LOS: 7 Anticipated DC Date: Planned Disposition: Primary Insurance: [place] [employer] [place] Discharge Planning Comments: CM met with patient at bedside after explaining CM role and obtaining verbal consent. CM discussed availability / needs of home health, REHAB and medical equipment. PATIENT DENIES ANY DISCHARGE NEEDS. STATES DAUGHTER IS ON HER WAY TO TRASPORT HER HOME. Weight Loss Centre Manager: Beryl Merrill Patient Name: DAI ALLAN Page 14706 at 1341 All edits/amendments must be made on the electronic document DICTATION DATE: 10/10/19 1340 PEDIATRIC NEPHROLOGIST: ROBE 10/10/19 1340 RPT#: [id number] DC DATE: STATUS: ADM IN [facility] [address] [place] [address] END OF REPORT
--- NOTE | 2019-10-11 08:19 | MORECARE ---
CASE MANAGEMENT DISCHARGE SUMMARY PATIENT: DAI ALLAN UNIT: [id number] ADM DATE: 10/03/19 AGE: 48 : 66 SEX: F ROOM/BED: D.2224 AUTHOR: SERGEY CASTLE PHYSICIAN: REFERRING PHYSICIAN: ESTIVEN HENNESSY MD DATE OF SERVICE: 10/11/19 Discharge Plan Patient Name: DAI ALLAN Facility: [facility]:[place] : 1970 Planned Disposition: Anticipated Discharge Date: Discharge Date: 10/10/2019 Expected LOS: Initial Reviewer: [email or web address] Initial Review Date: 10/04/2019 Generated: 10/11/19 9:18 am Comments DCP- Discharge Planning Updated by [email or web address]: Beryl Merrill on 10/10/19 12:[address] Patient Name: DAI ALLAN Admission Status: ER Accout number: [id number] Admission Date: 10-03-2019 : 1970 Admission Diagnosis:UNSPECIFIED ABDOMINAL PAIN Attending: ESTIVEN HENNESSY Current LOS: 7 Anticipated DC Date: Planned Disposition: Primary Insurance: [place] [employer] [place] Discharge Planning Comments: CM met with patient at bedside after explaining CM role and obtaining verbal consent. CM discussed availability / needs of home health, REHAB and medical equipment. PATIENT DENIES ANY DISCHARGE NEEDS. STATES DAUGHTER IS ON HER WAY TO TRASPORT HER HOME. Web Operations Specialist: Beryl Merrill Last DP export: 10/10/19 12:41 p Patient Name: DAI ALLAN Page 57408 at 0819 All edits/amendments must be made on the electronic document DICTATION DATE: 10/11/19817 UTILITY BILL COMPLAINTS INVESTIGATOR: DM 10/11/19817 RPT#: [id number] DC DATE:10/10/19 STATUS: DIS IN [facility] [address] [place] [address] END OF REPORT
== END 2019-10-10 14:46 | disposition home or self-care (01) | DRG 391 ==
LOC: D.ER 19:57 → D.MS 23:54 → D.EDHOLD 23:54 → D.MS 10-04 11:41
PROVIDERS: Family Medicine; Internal Medicine Gastroenterology; ADMIT Family Medicine; ATTEND Family Medicine
DX: K57.80 Diverticulitis of intestine, part unspecified, with perforation and abscess without bleeding (principal); K65.9 Peritonitis, unspecified; K21.9 Gastro-esophageal reflux disease without esophagitis; G35 Multiple sclerosis; M79.7 Fibromyalgia

== ENCOUNTER → 2020-07-06 09:56 | Outpatient (CLI) | payer MEDICAID ==
[2019-10-05 13:49] VITALS: BMI 30.4
[~2020-07-06 09:56] MED LIST changes: +COLACE100 MG PO; +DIFLUCAN100 MG PO; +FLAGYL500 MG PO; +FLORAJEN3 CAPS460 MG PO; +LEVAQUIN750 MG PO; +PHENERGAN25 M1 PO; +ULTRAM50 MG PO
--- NOTE | 2020-07-07 20:10 | EC ---
PATIENT:DAI ALLAN DATE OF SERVICE: 07/06/20 SEX: F MEDICAL RECORD: [id number] DATE OF : [birth year] LOCATION:[facility] AGE OF PATIENT: 49 ADMISSION DATE: 07/06/20 REFERRING PHYSICIAN: INTERPRETING PHYSICIAN: YADI SANCHEZ MD ECHOCARDIOGRAM REPORT ECHO CHARGES 4 ECHO COMPLETE Date: 07/06/20 CLINICAL DIAGNOSIS: HTN/DYSPNEA ASSESS EF ECHOCARDIOGRAPHIC MEASUREMENTS (adult normal given) AC root (d.<3.7cm) 3.7 cm LV Septum d (<1.2 cm> 1.2 cm Valve Excursion 1.8 cm LV Septum (systole) 1.4 cm Left Atria (s.<4.0cm> 3.6 cm LVPW d(<1.2cm) 1.2 cm RV (d.<2.3cm) 2.8 cm LVPW (sytole) 1.6 cm LV diastole(<5.6CM) 4.3 cm MV E-F(>70mm/sec) cm LV systole 2.6 cm LVOT Diameter 2.1 cm MV exc.(>10mm) 1.2 cm Est.ejection fraction (50-75%) % DOPPLER: LVIT cm/sec A 86.0 cm/sec E 76.0 cm/sec LA cm/sec RVSP 15 mmHg LVOT 114 cm/sec AOP1/2T m/s Asc. Ao 123 cm/sec RVOT 96 cm/sec RA cm/sec PA 100 cm/sec AV Gradient Peak 6.07 mmHg AV Mean 2.92 mmHg AV Area 3.5 cm MV Gradient Peak 3.00 mmHg MV Mean 1.10 mmHg MV Area cm COMMENTS: [place] Machine Operator: 2 MARTÍNEZ ABDULLAHI Manager English: 3 Dr. Cabrera TAPE# PACS Pericardial Effusion N DATE OF SERVICE: Adequate 2D, color flow imaging, spectral Doppler, and M-Mode. FINDINGS: Borderline LVH. LV internal dimensions are normal. Wall motion is normal. EF is greater than or equal to 55%. Aortic valve is tricuspid. No stenosis by Doppler interrogation. Left atrium is normal. Mitral valve shows no prolapse. Trace MR. Right sided is grossly was normal. Trace TR. TRANSINT:[id number] Voice Confirmation ID: [id number] DOCUMENT ID: [id number] ECHOCARDIOGRAM REPORT [id number] DAI ALLAN YADI SANCHEZ MD at 2010 CC: [id number] DICTATION DATE: 07/07/20830 MD ALLERGY IMMUNOLOGY: 07/07/2058 DEP CLI 07/06/20 [place] [id number] [place] [id number]
== END | disposition home or self-care (01) ==
LOC: D.HCCECHO 09:56
PROVIDERS: ATTEND Internal Medicine Interventional Cardiology
DX: I10 Essential (primary) hypertension (principal)